=== PATIENT | female | born 1980 | race Caucasian/White ===

== ENCOUNTER 2016-08-05 13:44 | Inpatient (IN) | payer OTHER ==
--- NOTE | ~2016-08-05 | HP ---
Unit #: [id number] #: [id number] Patient: JULISSA MONAE [id number] [place] [address] [id number] MR#: [id number] NAME: JULISSA MONAE ROOM: P178 Age: 36 Sex: F Admission Date: 08/05/2016 : 1980 Attending Physician: Carlton Patel M.D. Admitting Physician: Carlton Patel M.D. Primary Care Physician: Primary Care Physician No HISTORY AND PHYSICAL HISTORY OF PRESENT ILLNESS Julissa is a 36-year-old female admitted on 08/05/2016, for detox from alcohol. PAST MEDICAL HISTORY She has a past medical history of obesity, narcolepsy, PCOS, liver disease and history of pancreatitis. PAST SURGICAL HISTORY Tonsillectomy, abdomen laparoscopy, cholecystectomy, Cesareans section x1, appendectomy and bilateral tubal ligation. SOCIAL HISTORY Smokes half pack of cigarettes daily, drinks a fifth of alcohol daily. No illegal drug use. She is currently single and living with her boyfriend. FAMILY HISTORY Noncontributory. REVIEW OF SYSTEMS CONSTITUTIONAL: No fever or chills. HEENT: Denies any sore throat, ear pain or runny nose. CARDIOVASCULAR: Denies chest pain, irregular heart rhythm or palpitations. CHEST: Denies shortness of breath or cough. No hemoptysis. GASTROINTESTINAL: Denies nausea, vomiting, diarrhea or chronic constipation. ENDOCRINE: Denies history of increased thirst or urination. No recent significant weight loss or gain. GENITOURINARY: Denies dysuria, frequency, or hematuria. SKIN: Denies any rashes. HEMATOLOGIC: Denies history of increased bleeding or bruising. MUSCULOSKELETAL: Denies any hot, swollen joints. No generalized muscle pain. NEUROLOGIC: Denies problems with vision or speech. No frequent, severe headaches. No numbness, tingling or weakness in any extremities. Denies loss of bladder or bowel control. CURRENT MEDICATIONS 1. Topamax 2. Ibuprofen ALLERGIES Morphine Unit #: [id number] #: [id number] Patient: JULISSA MONAE PHYSICAL EXAMINATION GENERAL: Alert and oriented in no acute distress. VITAL SIGNS: Blood pressure 122/80, heart rate 90. HEIGHT: 5 feet 5 inches. WEIGHT: 215 pounds. SKIN: Bruising right eye and right nasal bridge. Medical consult placed. HEENT: Normocephalic. TMs not viewed. Oral and nasal passages clear. Conjunctivae clear. PERRLA. EOMs intact. NECK: Supple without lymphadenopathy or thyromegaly. HEART: Regular rate and rhythm without murmur. LUNGS: Clear. ABDOMEN: Soft, nontender, without masses or hepatosplenomegaly. : Not done. EXTREMITIES: No evidence of cyanosis, clubbing or edema. Moves all without focal deficit. NEUROLOGICAL: Grossly within normal limits. Cranial Nerves: II: Visual chacon are intact. III, IV AND : Extraocular movements are intact. Pupils are equal, round and reactive to light. V: Facial sensation is grossly normal. VII: Facial movements and expression are normal. VIII: Auditory acuity grossly intact. IX, X: Uvula is midline. Phonation is normal. XI: Patient shrugs shoulders and turns head normally. XII: Tongue protrudes in the midline. Sensory and Motor Function: Sensory and motor sensation is grossly normal. Motor: moves all extremities well. Coordination: Gait is normal. Deep Tendon Reflexes: Intact. MEDICAL ASSESSMENT AND PLAN 1. Psychiatric admission 2. Obesity 3. Narcolepsy 4. PCOS 5. Liver disease 6. History of pancreatitis RECOMMENDATIONS 1. Psychiatric, per psychiatrist. 2. Medical, no contraindications to participating in facility's activities. MEDICAL PROGNOSIS Good. MEDICAL CONDITION Stable. Dictated by... Khushbu Kline A.P.R.N. [facility]/harry Unit #: [id number] #: [id number] Patient: JULISSA MONAE TD: 08/06/2016 15:55 JOB #: [id number] HISTORY AND PHYSICAL Page 1 of 1 X KHUSHBU MARQUES APRN X HISTORY AND PHYSICAL
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
--- NOTE | ~2016-08-05 | DS ---
Unit #: [id number] #: [id number] Patient: JULISSA MONAE [id number] [place] [address] [id number] I MR#: [id number] NAME: JULISSA MONAE ROOM: P178 Age: 36 Sex: F Admission Date: 08/05/2016 : 1980 Discharge Date: 08/08/2016 Attending Physician: Carlton Patel M.D. Primary Care Physician: Primary Care Physician No DISCHARGE SUMMARY REASON FOR ADMISSION Julissa is a 36-year-old woman with a history of alcohol dependence, who presented to this facility, reporting a recent relapse and inability to tolerate detox in the outpatient setting. She was readmitted for detox. DIAGNOSTIC STUDIES LABORATORY RESULTS: Please see hospital chart. HOSPITAL COURSE Julissa was admitted and placed on the alcohol detox protocol. Topamax was continued with Motrin p.r.n. for pain, but Adderall was discontinued. She had an uneventful period of detox with no seizures or confusion. On the date of discharge, she went to the nurse's station stating that she needed to be discharged against medical advice because her son was in the hospital having seizures. She was seen by senior staff who agreed that she was able to give a reliable contract for safety and had remained free of suicidal ideation throughout her hospitalization. She was granted her request for discharge against medical advice. DISCHARGE DIAGNOSES AXIS I: Alcohol dependence with withdrawal, uncomplicated; alcohol- induced mood disorder. AXIS II: No diagnosis. AXIS III: History of seizures, history of polycystic ovary syndrome. AXIS IV: AXIS V: DISCHARGE INSTRUCTIONS Follow up with chemical dependence programming through [facility] and primary care physician. DISCHARGE MEDICATIONS None. CONDITION AT DISCHARGE Fair. PROGNOSIS Fair. DIET AND ACTIVITY Per primary care doctor. Unit #: [id number] #: [id number] Patient: JULISSA MONAE Dictated by... Carlton Patel M.D. [facility]/luisl TD: 09/26/2016 15:33 JOB #: [id number] DISCHARGE SUMMARY Page 1 of 1 X Carlton Patel MD X DISCHARGE SUMMARY
--- NOTE | ~2016-08-05 | PA ---
Unit #: [id number] #: [id number] Patient: JULISSA MONAE [id number] [place] [address] [id number] I MR#: [id number] NAME: JULISSA MONAE ROOM: P178 Age: 36 Sex: F Admission Date: 08/05/2016 : 1980 Date of Assessment: 08/06/2016 Attending Physician: Carlton Patel M.D. Admitting Physician: Carlton Patel M.D. Primary Care Physician: Primary Care Physician No PSYCHIATRIC ASSESSMENT DATE OF SERVICE 08/06/2016. INFORMANTS The patient reliable; OLOP, reliable. CHIEF COMPLAINT Relapse and suicidal ideation. HISTORY OF PRESENT ILLNESS Ms. Monae is a 35-year-old woman with a long history of alcohol dependence, who has relapsed onto alcohol use. She reported vague suicidal ideation and had active withdrawal symptoms, so she was admitted for stabilization. PAST PSYCHIATRIC HISTORY Previous admissions to this facility under similar circumstances. FAMILY PSYCHIATRIC HISTORY Both of her grandparents and her brother abuse alcohol. SOCIAL HISTORY The patient denied a history of childhood abuse or neglect. She is erratically housed and employed. She has moderate to mild psychosocial support. PAST MEDICAL HISTORY Significant for ovarian cyst and PCOS. MEDICATIONS Metformin. ALLERGIES No known medication allergies. SUBSTANCE USE HISTORY The patient has extensive history of alcoholism as previously documented. MENTAL STATUS EXAMINATION Julissa presented as an obese woman who appeared her stated age. She was cooperative with the examination. Her speech was spontaneous and easily understood. Her musculoskeletal examination was calm. Her mood was mildly irritable with a congruent affect. She was alert and fully Unit #: [id number] #: [id number] Patient: JULISSA MONAE oriented. Her memory and concentration were fair. Her thought processes were goal directed with no active psychosis. She denied suicidal ideation, intent, or plan. Insight and judgment, fair. Fund of knowledge and abstraction, fair. ASSETS AND LIABILITIES Assets; the patient knows local resources and presents voluntarily for treatment. Liabilities; include ongoing alcohol dependence. ADMITTING DIAGNOSES AXIS I: Alcohol dependence with withdrawal, uncomplicated, F10.230. AXIS II: No diagnosis. AXIS III: Polycystic ovary syndrome. AXIS IV: AXIS V: PSYCHIATRIC PLAN The patient was admitted and placed on the alcohol detox protocol. Joseeverettx will be continued in the outpatient setting, but Adderall will be discontinued. She will enroll in dual diagnosis groups and activities, and physical examination and laboratory studies will be ordered and reviewed. Treatment goalsare resolution of intoxication, improvement in insight, and improvement in coping skills. DISCHARGE PLANNING Follow up with primary care physician and on license of [facility] mental health. ESTIMATED LENGTH OF STAY 5 days. Dictated by... Carlton Patel M.D. [facility]LEXAN[facility]/kathrine TD: 09/26/2016 22:41 JOB #: [id number] PSYCHIATRIC ASSESSMENT Page 1 of 1 X Carlton Patel MD X PSYCHIATRIC ASSESSMENT
--- NOTE | ~2016-08-05 | CO ---
Unit #: [id number] #: [id number] Patient: JULISSA MONAE [id number] [place] [address] [id number] I MR#: [id number] NAME: JULISSA MONAE ROOM: P178 Age: 36 Sex: F Admission Date: 08/05/2016 : 1980 Attending Physician: Carlton Patel M.D. Consultation Date: 08/07/2016 CONSULTATION REPORT ADRIÁN Ragland is a 36-year-old who originally admitted to detox alcohol. She has a long history of alcohol abuse. On admission, her platelet count was 35. Nursing staff was concerned because 3 days before in the local emergency room, it was 60. The patient has no signs of active bleeding. She has complained of no hematemesis, hematochezia, or melena. She has had no complaints of dizziness, weakness, or lightheadedness. Vital signs have been stable. ASSESSMENT Thrombocytopenia in a 36 year old, long history of alcohol abuse. The reason for the drop from 60 to 35 over 3 days, is most likely hydration. PLAN The patient knows to follow up with primary care physician and seriously consider stopping her alcohol intake. Dictated by... Deb Bradley P.A.-C. for [facility]/kathrine TD: 08/08/2016 18:53 JOB #: [id number] CONSULTATION REPORT Page 1 of 1 X Deb Bradley CONSULTATION REPORT
[~2016-08-05 13:44] MED LIST: BACLOFEN20 MG PO; PHENERGAN25 M1 PO; PROVIGIL100 MG PO; TOPAMAX200 MG PO; TOPAMAX50 MG PO
[2016-08-07 12:38] LABS: BASOPHIL% 0.4 % (0-2.5); EOSINOPHIL# 0.1 X10e3 (0-0.7); EOSINOPHIL% 3.7 % (0.0-7.0); HEMATOCRIT 37.9 % (35.0-45.0); HEMOGLOBIN 12.1 gm/dL (12.0-16.0); LYMPHOCYTE# 1.3 X10e3 (1.0-3.5); LYMPHOCYTE% 41.3 % (17.0-45.0); MEAN CORPUSCULAR HEMOGLOBIN 29.6 PG (28-34); MEAN CORPUSCULAR HGB CONC 31.8 g/dL (30-36); MEAN PLATELET VOLUME 9.7 FL (6.5-11.5); MONOCYTE# 0.3 X10e3 (0-1.0); MONOCYTE% 10.2 % (3.0-12.0); NEUTROPHIL# 1.4 X10e3 (1.5-7.1); NEUTROPHIL% 44.4 % (40-75); RED BLOOD COUNT 4.08 X10e (3.90-5.30); RED CELL DISTRIBUTION WIDTH 14.7 % (11.0-15.5); WHITE BLOOD COUNT 3.2 X10e3 (4.0-10.5)
[2016-08-07 12:51] LABS: ALBUMIN SERUM 3.7 g/dL (3.5-5.0); BUN/CREATININE RATIO 15.71; CALCIUM SERUM 9.4 mg/dL (8.4-10.2); CREATININE SERUM 0.7 mg/dL (0.6-1.4); GLOM FILT RATE Estimated 111.5 mL/min (>60); POTASSIUM 3.5 mmol/L (3.5-5.1); PROTEIN TOTAL SERUM 6.3 g/dL (6.0-8.3)
[2016-08-07 13:01] LABS: DIFF IND YES; PLATELET COUNT 35 X10e3 (140-420)
[2016-08-07 13:04] LABS: PLATELET ESTIMATE DECREASED (NORMAL)
== END 2016-08-08 09:34 | DRG 897 ==
LOC: P1E 13:44
PROVIDERS: Psychiatry & Neurology Psychiatry
PROC: HZ2ZZZZ Detoxification Services for Substance Abuse Treatment (ICD-10-PCS; principal; 2016-08-05)
DX: F10.239 Alcohol dependence with withdrawal, unspecified (principal); R45.851 Suicidal ideations; D69.6 Thrombocytopenia, unspecified; F10.24 Alcohol dependence with alcohol-induced mood disorder; G47.419 Narcolepsy without cataplexy; F17.210 Nicotine dependence, cigarettes, uncomplicated; S09.93XD Unspecified injury of face, subsequent encounter; Y04.0XXD Assault by unarmed brawl or fight, subsequent encounter; E28.2 Polycystic ovarian syndrome; E66.9 Obesity, unspecified; Z88.5 Allergy status to narcotic agent; K76.9 Liver disease, unspecified
CPT/HCPCS: 80053; 84703; 85025; 86592

== ENCOUNTER 2016-10-27 19:18 | Inpatient (IN) | payer OTHER ==
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
--- NOTE | ~2016-10-27 | PN ---
Unit #: [id number] #: [id number] Patient: JULISSA MONAE [id number] [place] [address] [id number] I MR#: [id number] NAME: JULISSA MONAE ROOM: P214 Age: 36 Sex: F Admission Date: 10/27/2016 : 1980 Attending Physician: Carlton Patel M.D. Admitting Physician: Carlton Patel M.D. Primary Care Physician: Generic Doctor Not In System [facility] NOTES DATE 10/29/2016 This is Paris Hurley APRN, covering for Dr. Carlton Patel at [facility]. DISCUSSION She was see and assessed on 10/29/2016. Upon today's assessment she was found sitting in the day room. She states that she is "better today and her physical symptoms of withdrawal are more tolerable. At this time. She has complaints of stomach cramps, headaches and diaphoresis. She does report that her nausea and vomiting has improved as opposed to yesterday and states that she has been suffering from some elevated levels of anxiety and restlessness at this time. We will continue to monitor her via the alcohol detox protocol, as well as q. 15 minute checks for safety. Dictated by... Paris Hurley APRN TW/josé TD: 11/01/2016 08:22 JOB #: [id number] [facility] NOTES Page 1 of 1 X PARIS HURLEY PROGRESS NOTE
--- NOTE | ~2016-10-27 | DS ---
Unit #: [id number] #: [id number] Patient: JULISSA MONAE [id number] [place] [address] [id number] I MR#: [id number] NAME: JULISSA MONAE ROOM: P214 Age: 36 Sex: F Admission Date: 10/27/2016 : 1980 Discharge Date: 11/02/2016 Attending Physician: Carlton Patel M.D. Primary Care Physician: Generic Doctor Not In System DISCHARGE SUMMARY REASON FOR ADMISSION Julissa is a 36-year-old woman with a long history of alcohol dependence, who recently relapsed and had suicidal ideation with active withdrawal symptoms. She was admitted for stabilization. DIAGNOSTIC STUDIES LABORATORY RESULTS: Please see hospital chart. HOSPITAL COURSE The patient was admitted and placed on the alcohol detox protocol. Medications except for Adderall were continued, Adderall not being appropriate in this situation. She tolerated detox well with no significant adverse side effects. No delirium, confusion, or disorientation. She continued on her medications without other problems. On the date of discharge, she continued to show improvement with no suicidal ideation, intent, plan or issues with withdrawal. She was able to follow up in the CD-IOP program. DISCHARGE DIAGNOSES AXIS I: Alcohol dependence with withdrawal, uncomplicated; history of bipolar disorder; history of attention deficit hyperactivity disorder. AXIS II: No diagnosis. AXIS III: Polycystic ovarian syndrome. AXIS IV: AXIS V: DISCHARGE INSTRUCTIONS Follow up with CD-IOP at this facility and primary care physician. DISCHARGE MEDICATIONS Trazodone 100 mg at bedtime for insomnia. The patient was also to address the Vivitrol injection 380 mg once a month with our long-acting injectable clinic once she has been sober for more than a week. She can access this program through the intensive outpatient program. Home medications continued unchanged were BuSpar 10 mg b.i.d. for anxiety, Topamax 50 mg b.i.d. and 200 mg at bedtime for mood stability, Keppra 500 mg b.i.d. for seizures, norethindrone 5 mg daily for hormone replacement, Klor-Con 20 mEq daily for potassium replacement. Adderall was discontinued during this admission. CONDITION AT DISCHARGE Unit #: [id number] #: [id number] Patient: JULISSA MONAE Improved. PROGNOSIS Fair to good. DIET AND ACTIVITY Per primary care doctor. Dictated by... [facility]/kathrine TD: 11/11/2016 03:10 JOB #: [id number] DISCHARGE SUMMARY Page 1 of 1 X Carlton Patel MD X DISCHARGE SUMMARY
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
== END 2016-11-02 14:35 | disposition home or self-care (01) | DRG 897 ==
LOC: P2S 20:46
PROC: HZ2ZZZZ Detoxification Services for Substance Abuse Treatment (ICD-10-PCS; principal; 2016-10-27)
DX: F10.230 Alcohol dependence with withdrawal, uncomplicated (principal); E28.2 Polycystic ovarian syndrome; Z81.1 Family history of alcohol abuse and dependence; Z88.5 Allergy status to narcotic agent; F17.200 Nicotine dependence, unspecified, uncomplicated

== ENCOUNTER 2016-11-14 02:00 | Inpatient (IN) | payer OTHER ==
[~2016-11-14] VITALS: Ht 157.5 cm; Wt 97.5 kg
--- NOTE | ~2016-11-14 | HP ---
Unit #: [id number] #: [id number] Patient: JULISSA MONAE [id number] [place] [address] [id number] I MR#: [id number] NAME: JULISSA MONAE ROOM: P179 Age: 36 Sex: F Admission Date: 11/15/2016 : 1980 Attending Physician: Carlton Patel M.D. Admitting Physician: Carlton Patel M.D. Primary Care Physician: Primary Care Physician No HISTORY AND PHYSICAL Julissa is a 36-year-old female admitted to [facility] on 11/15/2016 for detox from alcohol. She has multiple previous admissions for the same. She was recently admitted on 10/27/2016. I reviewed the history and physical on that admission and there are no changes. Dictated by... Raghaevndra Santizo/leonarda TD: 11/15/2016 22:08 JOB #: [id number] HISTORY AND PHYSICAL Page 1 of 1 X NICHOLAS MARQUES APRN HISTORY AND PHYSICAL
--- NOTE | ~2016-11-14 | PA ---
Unit #: [id number] #: [id number] Patient: JULISSA MONAE [id number] [place] [address] [id number] MR#: [id number] NAME: JULISSA MONAE ROOM: P179 Age: 36 Sex: F Admission Date: 11/15/2016 : 1980 Date of Assessment: Attending Physician: Carlton Patel M.D. Admitting Physician: Carlton Patel M.D. Primary Care Physician: Primary Care Physician No PSYCHIATRIC ASSESSMENT DATE OF ASSESSMENT 11/16/2016. INFORMANTS The patient, reliable; OLOP, reliable. CHIEF COMPLAINT Alcohol dependence. HISTORY OF PRESENT ILLNESS The patient is a 35-year-old woman, recently discharged from this facility, who apparently relapsed soon after admission. She had no active suicidal ideation, intent, or plan, but was highly intoxicated at the time of admission, and was admitted for detox. PAST PSYCHIATRIC HISTORY Multiple admissions to this facility at this time. FAMILY PSYCHIATRIC HISTORY Both her parents and brother abused alcohol. SOCIAL HISTORY The patient denies a history of childhood abuse or neglect. She is erratically in house and unemployed, xhlj-zq-[id number] psychosocial support, which changes with her ongoing drug use. PAST MEDICAL HISTORY Polycystic ovarian syndrome and history of ovarian cyst. MEDICATIONS Please see MAR. ALLERGIES No known medication allergies. SUBSTANCE HISTORY The patient has extensive history of alcoholism. MENTAL STATUS EXAMINATION The patient is an obese woman appearing her stated age. She was quiet and sleepy during the examination. Speech was easily understood. Mood was mildly dysphoric with a congruent affect. She was alert and fully oriented. Her memory and concentration were fair. Thought processes were Unit #: [id number] #: [id number] Patient: JULISSA MONAE logical with no psychosis, confusion, or disorientation. She denied suicidal ideation, intent, or plan. Insight and judgment, fair. Fund of knowledge and abstraction, fair. ASSETS AND LIABILITIES The patient presents voluntarily and is familiar with local resources. She is seeking long-term care, and liabilities include difficulty maintaining sobriety and lack of outpatient support. ADMITTING DIAGNOSES AXIS I: Opiate dependence with withdrawal, uncomplicated. AXIS II: No diagnosis. AXIS III: Polycystic ovarian syndrome. AXIS IV: AXIS V: PSYCHIATRIC PLAN The patient was admitted and placed on the alcohol detox protocol. She will enroll in dual diagnosis groups and activities, and we will work toward placement in a long-term care facility. ESTIMATED LENGTH OF STAY 5 days. Dictated by... Carlton Patel M.D. ALEXANDRA/kathrine TD: 11/19/2016 11:35 JOB #: [id number] PSYCHIATRIC ASSESSMENT Page 1 of 1 X Carlton Patel MD X PSYCHIATRIC ASSESSMENT
--- NOTE | ~2016-11-14 | PN ---
Unit #: [id number] #: [id number] Patient: JULISSA MONAE [id number] [facility] [address] [place] [address] [id number] MR#: [id number] NAME: JULISSA MONAE ROOM: P179 Age: 36 Sex: F Admission Date: 11/15/2016 : 1980 Attending Physician: Carlton Patel M.D. Admitting Physician: Va Barbosa PROGRESS NOTES DATE OF SERVICE: 11/19/2016 DISCUSSION Julissa is doing a little bit better today. She still complains of mild detox symptomatology, but her CIWA scores are very low. She has obtain placement tomorrow at a long-term care facility and is looking forward to this as long-term placement. ASSESSMENT Alcohol dependence. PLAN Continue current treatment plan. Anticipating discharge tomorrow to a long-term care facility. Dictated by... Va BarbosaH/kathrine TD: 11/19/2016 11:45 JOB #: [id number] [facility] BRIGHT NOTES Page 1 of 1 X Carlton Patel MD PROGRESS NOTE
--- NOTE | ~2016-11-14 | DS ---
Unit #: [id number] #: [id number] Patient: JULISSA MONAE [id number] [place] [address] [id number] I MR#: [id number] NAME: JULISSA MONAE ROOM: P179 Age: 36 Sex: F Admission Date: 11/15/2016 : 1980 Discharge Date: 11/20/2016 Attending Physician: Carlton Patel M.D. Primary Care Physician: Primary Care Physician No DISCHARGE SUMMARY REASON FOR ADMISSION Julissa is a 36-year-old woman with a history of alcohol dependence, who came back to the hospital having had immediate relapse. She had no suicidal ideation, intent, or plan, but was highly intoxicated and was readmitted for stabilization. DIAGNOSTIC STUDIES LABORATORY RESULTS: Please see hospital chart. HOSPITAL COURSE The patient was admitted and placed on the alcohol detox protocol. She enrolled in dual diagnosis groups and activities. She was generally not participated in group, spending much of her time in bed and now participating has requested. She did work with the business planner on a placement at [facility] in [place], [place]. DISCHARGE DIAGNOSES AXIS I: Alcohol dependence with withdrawal, uncomplicated, F11.230. AXIS II: No diagnosis. AXIS III: History of polycystic ovarian disease. AXIS IV: AXIS V: DISCHARGE INSTRUCTIONS Follow up with psychiatric and chemical dependency provider of your choice. DISCHARGE MEDICATIONS Topamax 50 mg b.i.d. and 200 mg at bedtime for mood stability, BuSpar 10 mg b.i.d. for anxiety, Keppra 500 mg b.i.d. for seizures, trazodone 100 mg at bedtime as needed for insomnia, norethindrone acetate 5 mg daily for hormone regulation. CONDITION AT DISCHARGE Fair. PROGNOSIS Fair. DIET AND ACTIVITY Ad efra. Unit #: [id number] #: [id number] Patient: JULISSA MONAE Dictated by... Carlton Patel M.D. [facility]/luisl TD: 11/20/2016 15:41 JOB #: [id number] DISCHARGE SUMMARY Page 1 of 1 X Carlton Patel MD DISCHARGE SUMMARY
[2016-11-14] MEDS ORDERED: NO MEDICATIONS (17:16)
[2016-11-15 10:19] LABS: BASOPHIL% 0.6 % (0-2.5); EOSINOPHIL# 0.1 X10e3 (0-0.7); HEMATOCRIT 37.5 % (35.0-45.0); HEMOGLOBIN 12.3 gm/dL (12.0-16.0); LYMPHOCYTE# 1.7 X10e3 (1.0-3.5); LYMPHOCYTE% 31.2 % (17.0-45.0); MEAN CELL VOLUME 96.7 FL (83-96); MEAN CORPUSCULAR HEMOGLOBIN 31.7 PG (28-34); MEAN CORPUSCULAR HGB CONC 32.8 g/dL (30-36); MEAN PLATELET VOLUME 8.6 FL (6.5-11.5); MONOCYTE# 0.3 X10e3 (0-1.0); MONOCYTE% 4.7 % (3.0-12.0); NEUTROPHIL# 3.5 X10e3 (1.5-7.1); NEUTROPHIL% 62.5 % (40-75); RED BLOOD COUNT 3.88 X10e (3.90-5.30); RED CELL DISTRIBUTION WIDTH 16.4 % (11.0-15.5); WHITE BLOOD COUNT 5.6 X10e3 (4.0-10.5)
[2016-11-15 10:51] LABS: ALBUMIN SERUM 3.5 g/dL (3.5-5.0); ALKALINE PHOSPHATASE 263 U/L (32-92); ALT (SGPT) 77 U/L (10-40); AST (SGOT) 86 U/L (10-42); BILIRUBIN,TOTAL 1.1 mg/dL (0.2-2.0); BLOOD UREA NITROGEN 6 mg/dL (9-23); CALCIUM SERUM 8.3 mg/dL (8.4-10.2); CARBON DIOXIDE 28 mmol/L (22-31); CHLORIDE 97 mmol/L (100-111); CREATININE SERUM 0.4 mg/dL (0.6-1.4); GLUCOSE FASTING 72 mg/dL (70-110); PROTEIN TOTAL SERUM 6.2 g/dL (6.0-8.3); SODIUM 135 mmol/L (135-145)
[2016-11-15 10:58] LABS: DEPAKENE (VALPROIC ACID) <10 ug/mL (50-125)
[2016-11-15 11:47] LABS: PLATELET COUNT 83 X10e3 (140-420)
[2016-11-15 11:48] LABS: DIFF IND YES
[2016-11-15 12:11] LABS: NUCLEATED RED BLOOD CELL 1 /100 (0)
[2016-11-15 12:12] LABS: ANISOCYTOSIS SL; PLATELET ESTIMATE DECREASED (NORMAL)
[2016-11-17 09:50] LABS: URINE APPEARANCE CLEAR; URINE BILIRUBIN NEG (NEG); URINE BLOOD NEG (NEG); URINE COLOR YELLOW; URINE GLUCOSE NEG (NEG); URINE KETONE NEG (NEG); URINE LEUKOCYTE ESTERASE NEG (NEG); URINE NITRATE NEG (NEG); URINE PH 8.5 (5-8); URINE PROTEIN NEG (NEG); URINE SPECIFIC GRAVITY 1.009 (1.003-1.035)
[2016-11-17 11:09] LABS: AMPHETAMINE NEG (NEG); BARBITURATES POS (NEG); BENZODIAZEPINES POS (NEG); COCAINE NEG (NEG); MARIJUANA NEG (NEG); OPIATES NEG (NEG); TRICYCLIC ANTIDEPRESSANTS NEG (NEG); U METHADONE NEG (NEG)
== END 2016-11-20 12:50 | disposition home or self-care (01) | DRG 897 ==
LOC: P1E 11-15 00:22
PROVIDERS: Psychiatry & Neurology Psychiatry
PROC: HZ2ZZZZ Detoxification Services for Substance Abuse Treatment (ICD-10-PCS; principal; 2016-11-15)
DX: F10.230 Alcohol dependence with withdrawal, uncomplicated (principal); E28.2 Polycystic ovarian syndrome; Y90.8 Blood alcohol level of 240 mg/100 ml or more
CPT/HCPCS: 80053; 80164; 80307; 81003; 84132; 84703; 85025; 86592

== ENCOUNTER 2016-11-14 10:06 | Emergency (ER) | payer OTHER ==
[2016-11-14 12:04] LABS: BASOPHIL% 0.6 % (0-2.5); HEMATOCRIT 38.7 % (35.0-45.0); HEMOGLOBIN 12.7 gm/dL (12.0-16.0); LYMPHOCYTE# 2.2 X10e3 (1.0-3.5); LYMPHOCYTE% 57.7 % (17.0-45.0); MEAN CELL VOLUME 96.4 FL (83-96); MEAN CORPUSCULAR HEMOGLOBIN 31.7 PG (28-34); MEAN CORPUSCULAR HGB CONC 32.9 g/dL (30-36); MONOCYTE# 0.2 X10e3 (0-1.0); MONOCYTE% 6.3 % (3.0-12.0); NEUTROPHIL# 1.3 X10e3 (1.5-7.1); NEUTROPHIL% 34.4 % (40-75); PLATELET COUNT 108 X10e3 (140-420); RED BLOOD COUNT 4.02 X10e (3.90-5.30); WHITE BLOOD COUNT 3.8 X10e3 (4.0-10.5)
[2016-11-14 12:05] LABS: DIFF IND YES
[2016-11-14 12:21] LABS: BILIRUBIN, DIRECT 0.2 mg/dL (0.0-0.2); BILIRUBIN,INDIRECT 0.3 mg/dL (0.0-0.9); BILIRUBIN,TOTAL 0.5 mg/dL (0.2-2.0); BUN/CREATININE RATIO 8.33; CALCIUM SERUM 8.1 mg/dL (8.4-10.2); CREATININE SERUM 0.6 mg/dL (0.6-1.4); GLOM FILT RATE Estimated 117.3 mL/min (>60); PROTEIN TOTAL SERUM 6.9 g/dL (6.0-8.3)
[2016-11-14 12:23] LABS: POTASSIUM 2.9 mmol/L (3.5-5.1)
[2016-11-14 12:59] LABS: PLATELET ESTIMATE DECREASED (NORMAL)
[2016-11-14 13:00] LABS: ANISOCYTOSIS MOD
[2016-11-14] MEDS ORDERED: NO MEDICATIONS (17:16)
== END 2016-11-14 21:29 | disposition home or self-care (01) ==
LOC: CED 10:06
PROVIDERS: Emergency Medicine
DX: F10.229 Alcohol dependence with intoxication, unspecified (principal); E87.6 Hypokalemia; F90.9 Attention-deficit hyperactivity disorder, unspecified type
CPT/HCPCS: 36415; 80048; 80076; 82947; 85025; 99284; G0480

== ENCOUNTER 2016-12-20 13:00 | Inpatient (IN) | payer OTHER ==
[~2016-12-20] VITALS: Ht 160 cm; Wt 97.5 kg
--- NOTE | ~2016-12-20 | HP ---
Unit #: [id number] #: [id number] Patient: JULISSA MONAE [id number] [place] [address] [id number] MR#: [id number] NAME: JULISSA MONAE ROOM: P178 Age: 36 Sex: F Admission Date: 12/20/2016 : 1980 Attending Physician: Carlton Patel M.D. Admitting Physician: Carlton Patel M.D. Primary Care Physician: Generic Doctor Not In System HISTORY AND PHYSICAL HISTORY OF PRESENT ILLNESS Julissa is a 36 year old admitted to [facility] because of her continued abuse of alcohol. She is detoxing. PAST MEDICAL HISTORY 1. Long history of alcohol abuse. 2. High blood pressure. 3. PCOS. 4. Obesity. 5. History of withdrawal seizures. PAST SURGICAL HISTORY 1. T and A. 2. Cholecystectomy. 3. Appendectomy. 4. Tubal ligation. ALLERGIES No known drug allergies. SOCIAL HISTORY He smokes less than 1/2 pack per day. Drinks at least a fifth of vodka on a daily basis. Denies illicit drug use. FAMILY HISTORY Medically noncontributory. REVIEW OF SYSTEMS CONSTITUTIONAL: No fever or chills. HEENT: Denies any sore throat, ear pain or runny nose. CARDIOVASCULAR: Denies chest pain, irregular heart rhythm or palpitations. CHEST: Denies shortness of breath or cough. No hemoptysis. GASTROINTESTINAL: Denies nausea, vomiting, diarrhea or chronic constipation. ENDOCRINE: Denies history of increased thirst or urination. No recent significant weight loss or gain. GENITOURINARY: Denies dysuria, frequency, or hematuria. SKIN: Denies any rashes. HEMATOLOGIC: Denies history of increased bleeding or bruising. MUSCULOSKELETAL: Denies any hot, swollen joints. No generalized muscle pain. NEUROLOGIC: Denies problems with vision or speech. No frequent, severe headaches. No numbness, tingling or weakness in any extremities. Denies Unit #: [id number] #: [id number] Patient: JULISSA MONAE loss of bladder or bowel control. CURRENT MEDICATIONS 1. Detox protocol. 2. Desyrel 100 mg q.h.s. 3. Topamax 200 mg q.h.s. 4. Ibuprofen 800 mg b.i.d. 5. Keppra 500 mg b.i.d. PHYSICAL EXAMINATION GENERAL: Alert, obese, in a wheelchair, weak but otherwise no apparent distress. VITAL SIGNS: Blood pressure 126/86, heart rate 88, respirations 16, temperature 98.6. WEIGHT: 215. HEIGHT: 5 feet 3 inches. SKIN: Warm and dry without rash or lesion. HEENT: Normocephalic. TMs not viewed. Oral and nasal passages clear. Conjunctivae clear. PERRLA. EOMs intact. NECK: Supple without lymphadenopathy or thyromegaly. HEART: Regular rate and rhythm without murmur. LUNGS: Clear. ABDOMEN: Soft, nontender. : Not done. EXTREMITIES: No evidence of cyanosis, clubbing or edema. Moves all without focal deficit. NEUROLOGICAL: Unable to complete extended exam. She does move all extremities without focal deficit. She is able to stand but is weak. Hand credit investigator is equal. Gait not observed. IMPRESSION Psychiatric admission. RECOMMENDATIONS PSYCHIATRIC: Per psychiatrist. MEDICAL: See no contraindication to participate in facility's activities. MEDICAL PROGNOSIS Good. MEDICAL CONDITION Stable. Dictated by... Deb Bradley P.A.-C. for [facility]/leonarda TD: 12/21/2016 19:58 JOB #: [id number] Unit #: [id number] #: [id number] Patient: JULISSA MONAE HISTORY AND PHYSICAL Page 1 of 1 X Deb Bradley HISTORY AND PHYSICAL
--- NOTE | ~2016-12-20 | PN ---
Unit #: [id number] #: [id number] Patient: JULISSA MONAE [id number] [facility] [address] [place] [address] [id number] I MR#: [id number] NAME: JULISSA MONAE ROOM: P178 Age: 36 Sex: F Admission Date: 12/20/2016 : 1980 Attending Physician: Carlton Patel M.D. Admitting Physician: Carlton Patel M.D. Primary Care Physician: Luis Doctor Not In System [facility] PROGRESS NOTES DATE 12/26/2016 DISCUSSION Julissa is up and attending some groups and activities today. She still complains of some stomach upset and "shakiness" but her Ativan protocol has stopped at this point and I am not inclined to restart it. She is depending on a social security benefits interviewer to do much of her discharge planning and I encouraged her to be more active in this area. Her mood continues to be somewhat irritable but not suicidal. ASSESSMENT Alcohol dependence. PLAN Continue current treatment plan, anticipating discharge soon. Dictated by... Carlton Patel M.D. [facility]/leonarda TD: 12/29/2016 22:28 JOB #: [id number] [facility] PROGRESS NOTES Page 1 of 1 X Carlton Patel MD PROGRESS NOTE
--- NOTE | ~2016-12-20 | PN ---
Unit #: [id number] #: [id number] Patient: JULISSA MONAE [id number] [facility] [address] [place] [address] [id number] I MR#: [id number] NAME: JULISSA MONAE ROOM: 78 Age: 36 Sex: F Admission Date: 12/20/2016 : 1980 Attending Physician: Carlton Patel M.D. Admitting Physician: Carlton Patel M.D. Primary Care Physician: [facility] Doctor Not In System [facility] PROGRESS NOTES DATE 12/25/2016 DISCUSSION Julissa has decreased detox symptoms today, she continues to report some depression, irritability, and has not been participating in groups or making significant steps towards her long-term placement. She is alert and fully oriented with no psychosis. ASSESSMENT Alcohol dependence, mood disorder, NOS. PLAN Continue current treatment plan and anticipate discharge later in the week. Dictated by... Va Barbosa/dennis TD: 12/29/2016 06:08 JOB #: [id number] [facility] PROGRESS NOTES Page 1 of 1 X Carlton Patel MD X PROGRESS NOTE
--- NOTE | ~2016-12-20 | PN ---
Unit #: [id number] #: [id number] Patient: JULISSA MONAE [id number] [facility] [address] [place] [address] [id number] I MR#: [id number] NAME: JULISSA MONAE ROOM: P178 Age: 36 Sex: F Admission Date: 12/20/2016 : 1980 Attending Physician: Carlton Patel M.D. Admitting Physician: Carlton Patel M.D. Primary Care Physician: [facility] Doctor Not In System [facility] PROGRESS NOTES DATE 12/22/2016 DISCUSSION Julissa continues to have active withdrawal symptoms today. She stayed in bed for much of the day and minimally participates in psychotherapy groups and activities. Her mood is irritable with a congruent affect. She is alert and fully oriented with no active psychosis. There is no episodes of confusion, disorientation or delirium. ASSESSMENT 1. Bipolar depressed. 2. Alcohol dependence. PLAN Continue current treatment plan. Dictated by... Va Barbosa/aaron TD: 12/29/2016 02:49 JOB #: [id number] [facility] PROGRESS NOTES Page 1 of 1 X Carlton Patel MD PROGRESS NOTE
--- NOTE | ~2016-12-20 | DS ---
Unit #: [id number] #: [id number] Patient: JULISSA MONAE [id number] [facility] [address] [place] [address] [id number] I MR#: [id number] NAME: JULISSA MONAE ROOM: P178 Age: 36 Sex: F Admission Date: 12/20/2016 : 1980 Discharge Date: 12/27/2016 Attending Physician: Carlton Patel M.D. Primary Care Physician: Generic Doctor Not In System DISCHARGE SUMMARY REASON FOR ADMISSION Julissa is a 36-year-old woman with a long history of alcohol dependence and bipolar depression. She had been drinking again and had suffered a seizure just prior to admission when she was admitted to . After she was medically stabilized at that facility, [facility] DIAGNOSTIC STUDIES LABORATORY RESULTS: Please see hospital chart. HOSPITAL COURSE The patient was admitted and placed on suicide precautions and the alcohol detox protocol. Her home medications were restarted with the change to Seroquel at bedtime for insomnia. She was generally withdrawn and minimally engaged in group activities during her hospital stay, and was highly dependent on her high school social studies tutor to attempt to determine future placement. When her detox resolved, she continued to avoid participation in the unit groups and activities. On the date of discharge, she had obtained some possible placements, but nothing definite. The patient continued to have limited insight and appears to be only marginally committed to her long-term recovery. DISCHARGE DIAGNOSES AXIS I: Bipolar depressed and alcohol dependence with withdrawal. AXIS II: No diagnosis. AXIS III: History of polycystic ovarian disease and history of withdrawal seizures. AXIS IV: AXIS V: DISCHARGE INSTRUCTIONS Follow up with community mental health and chemical dependency programing of the patient's choice. DISCHARGE MEDICATIONS Seroquel 100 mg at bedtime for insomnia and BuSpar 15 mg b.i.d. for anxiety. Primary care medications were Topamax 50 mg b.i.d. and 200 mg at bedtime for mood stability, Keppra 500 mg b.i.d. for seizures, Proventil inhaler 2 puffs every 4 hours as needed for shortness of air, and norethindrone 5 mg daily for hormone regulation. Unit #: [id number] #: [id number] Patient: JULISSA MONAE CONDITION AT DISCHARGE Fair. PROGNOSIS Fair to good. DIET AND ACTIVITY Ad efra. Dictated by... Va Barbosa/kathrine TD: 12/27/2016 18:39 JOB #: [id number] DISCHARGE SUMMARY Page 1 of 1 X Carlton Patel MD X DISCHARGE SUMMARY
--- NOTE | ~2016-12-20 | PA ---
Unit #: [id number] #: [id number] Patient: JULISSA MONAE [id number] [facility] [address] [place] [address] [id number] I MR#: [id number] NAME: JULISSA MONAE ROOM: P178 Age: 36 Sex: F Admission Date: 12/20/2016 : 1980 Date of Assessment: 12/21/2016 Attending Physician: Carlton Patel M.D. Admitting Physician: Carlton Patel M.D. Primary Care Physician: Generic Doctor Not In System PSYCHIATRIC ASSESSMENT DATE OF SERVICE 12/21/2016. INFORMANTS The patient, reliable and [facility]. CHIEF COMPLAINT Alcohol dependence and SI. HISTORY OF PRESENT ILLNESS Julissa is a 36-year-old woman, who was discharged from this hospital about 4 weeks ago and she recently relapsed on alcohol, drinking up to a fifth of vodka or rum daily. She had a history of seizures and was admitted to [facility] briefly for history of extreme seizures and detox. [facility] PAST PSYCHIATRIC HISTORY Several previous admissions to this facility. Please see previous assessments for details. FAMILY PSYCHIATRIC HISTORY Reviewed and no changes. SOCIAL HISTORY The patient denies a history of childhood abuse or neglect. She is erratically housed and is unemployed with minimal psychosocial support at this point. PAST MEDICAL HISTORY Polycystic ovarian syndrome and history of ovarian cyst. Also, history of withdrawal seizures. MEDICATIONS Please see MAR. ALLERGIES No known medication allergies. SUBSTANCE ABUSE HISTORY As noted, the patient has an extensive history of alcoholism. MENTAL STATUS EXAMINATION Julissa presented as an obese woman, appearing older than her stated age. Unit #: [id number] #: [id number] Patient: JULISSA MONAE She was sleepy during the examination with sparse speech. Mood was depressed with a flat affect. She was alert and fully oriented with no evidence of psychosis and ongoing suicidal ideation. She had fair fund of knowledge and abstraction. ASSETS AND LIABILITIES The patient comes in voluntarily and agrees to seek long-term care. Liabilities include frequent relapse and lack of support. ADMITTING DIAGNOSES AXIS I: Bipolar depressed and alcohol dependence. AXIS II: No diagnosis. AXIS III: Polycystic ovarian syndrome. AXIS IV: AXIS V: PSYCHIATRIC PLAN The patient was admitted on the alcohol detox protocol. Her home medications will be restarted for her new condition and she will enroll in dual diagnosis groups and activities. TREATMENT GOALS Resolution of SI, improvement in insight, resolution of intoxication, and improvement in coping skills. DISCHARGE PLANNING Follow up with chemical dependence programing and community mental health. ESTIMATED LENGTH OF STAY 5 days. Dictated by... Va Barbosa/kathrine TD: 12/27/2016 16:16 JOB #: [id number] PSYCHIATRIC ASSESSMENT Page 1 of 1 X Carlton Patel MD X PSYCHIATRIC ASSESSMENT
--- NOTE | ~2016-12-20 | PN ---
Unit #: [id number] #: [id number] Patient: JULISSA MONAE [id number] [facility] [address] [place] [address] [id number] I MR#: [id number] NAME: JULISSA MONAE ROOM: P178 Age: 36 Sex: F Admission Date: 12/20/2016 : 1980 Attending Physician: Carlton Patel M.D. Admitting Physician: Carlton Patel M.D. Primary Care Physician: Generic Doctor Not In System [facility] PROGRESS NOTES DATE OF SERVICE 12/24/2016 DISCUSSION Julissa continues to have detox symptoms today. She mainly stays in bed and attends only occasional groups and activities. Her mood is irritable with a decreased range of affect. She is alert and fully oriented with no active psychosis. ASSESSMENT Alcohol dependence, major depression. PLAN Continue current treatment plan. Dictated by... Va Barbosa/aaron TD: 12/29/2016 01:12 JOB #: [id number] [facility] PROGRESS NOTES Page 1 of 1 X Carlton Patel MD PROGRESS NOTE
[~2016-12-20 13:00] MED LIST changes: +NO MEDICATIONS
== END 2016-12-27 17:00 | DRG 897 ==
LOC: P1E 19:32
PROC: HZ2ZZZZ Detoxification Services for Substance Abuse Treatment (ICD-10-PCS; principal; 2016-12-21)
DX: F10.239 Alcohol dependence with withdrawal, unspecified (principal); F31.9 Bipolar disorder, unspecified; I10 Essential (primary) hypertension; E28.2 Polycystic ovarian syndrome; Z90.49 Acquired absence of other specified parts of digestive tract; Z98.51 Tubal ligation status; F17.210 Nicotine dependence, cigarettes, uncomplicated
CPT/HCPCS: 86592

== ENCOUNTER 2017-01-08 15:58 | Inpatient (IN) | payer OTHER ==
[~2017-01-08] VITALS: Ht 162.6 cm; Wt 104.3 kg
--- NOTE | ~2017-01-08 | HP ---
Unit #: [id number] #: [id number] Patient: JULISSA MONAE [id number] [place] [address] [id number] I MR#: [id number] NAME: JULISSA MONAE ROOM: P173 Age: 36 Sex: F Admission Date: 01/08/2017 : 1980 Attending Physician: Carlton Patel M.D. Admitting Physician: Carlton Patel M.D. Primary Care Physician: Generic Doctor Not In System HISTORY AND PHYSICAL Julissa is a 36 year old admitted to [facility] because of her continued abuse of alcohol. She is detoxing. She was recently discharged from this facility after treatment for the same. Patient was seen and H and P dated 12/21/16 was reviewed. This is current. No changes. Please see H and P dated 12/21/16. Dictated by... Deb Bradley PDaijaAAlonso. for [facility]/leonarda TD: 01/09/2017 20:07 JOB #: [id number] HISTORY AND PHYSICAL Page 1 of X Deb Bradley HISTORY AND PHYSICAL
--- NOTE | ~2017-01-08 | PN ---
Unit #: [id number] #: [id number] Patient: JULISSA MONAE [id number] [facility] [address] [place] [address] [id number] MR#: [id number] NAME: JULISSA MONAE ROOM: P173 Age: 36 Sex: F Admission Date: 01/08/2017 : 1980 Attending Physician: Carlton Patel M.D. Admitting Physician: Carlton Patel M.D. Primary Care Physician: Juancarlos Chung Listed [facility] PROGRESS NOTES DATE 01/10/2017 DISCUSSION Julissa is doing a little bit better now with a more active participation in groups and less detox symptoms. Her mood remains anxious with a congruent affect. She is alert and fully oriented with no psychosis. ASSESSMENT Alcohol dependence. PLAN Continue detox protocol. Dictated by... Va Barbosa/paige TD: 01/18/2017 02:58 JOB #: [id number] [facility] PROGRESS NOTES Page 1 of 1 X Carlton Patel MD PROGRESS NOTE
--- NOTE | ~2017-01-08 | PN ---
Unit #: [id number] #: [id number] Patient: JULISSA MONAE [id number] [facility] [address] [place] [address] [id number] I MR#: [id number] NAME: JULISSA MONAE ROOM: 73 Age: 36 Sex: F Admission Date: 01/08/2017 : 1980 Attending Physician: Carlton Patel M.D. Admitting Physician: Carlton Patel M.D. Primary Care Physician: Generic Doctor Not In System [facility] PROGRESS NOTES DATE 01/14/2017 DISCUSSION Julissa is up and around on the unit today, she still complains of difficulty sleeping and reports mild "sniffles" from a viral upper respiratory infection. Her mood is better with a brighter affect. She is alert and fully oriented with no evidence of psychosis and no SI. She is planning to go to [facility] facility tomorrow. ASSESSMENT Alcohol dependence, bipolar disorder. PLAN We will add Benadryl p.r.n. for her congestion and change Seroquel back to trazodone in an attempt to improve her sleep. Dictated by... Va BarbosaH/dennis TD: 01/17/2017 05:14 JOB #: [id number] [facility] PROGRESS NOTES Page 1 of 1 X Carlton Patel MD PROGRESS NOTE
--- NOTE | ~2017-01-08 | PA ---
Unit #: [id number] #: [id number] Patient: JULISSA MONAE [id number] [place] [address] [id number] I MR#: [id number] NAME: JULISSA MONAE ROOM: P173 Age: 36 Sex: F Admission Date: 01/08/2017 : 1980 Date of Assessment: Attending Physician: Carlton Patel M.D. Admitting Physician: Carlton Patel M.D. PSYCHIATRIC ASSESSMENT DATE OF SERVICE 01/09/2017. INFORMANTS The patient, partially reliable and OLOP, reliable. CHIEF COMPLAINT Relapse. HISTORY OF PRESENT ILLNESS Julissa is a 36-year-old woman, recently discharged from this facility, who apparently "could not find a ride" to her recent placement and relapsed on alcohol. She had vague suicidal ideation and was admitted after medical clearance. PAST PSYCHIATRIC HISTORY Several admissions to this facility. FAMILY PSYCHIATRIC HISTORY Reviewed with no changes. SOCIAL HISTORY The patient denied a childhood history of abuse or neglect. She is erratically housed and employed. PAST MEDICAL HISTORY Polycystic ovarian syndrome and withdrawal seizures. MEDICATIONS Please see MAR. ALLERGIES No known medication allergies. SUBSTANCE ABUSE HISTORY Extensive history of alcoholism. MENTAL STATUS EXAMINATION Julissa presented as an obese woman, appearing her stated age. She was sleepy with sparse speech. Mood was depressed with a flat affect. She was alert and fully oriented with no evidence of psychosis and vague SI. ASSETS AND LIABILITIES Unit #: [id number] #: [id number] Patient: JULISSA MONAE The patient is voluntary and plans to seek long-term care. Liabilities include frequent relapse. ADMITTING DIAGNOSES AXIS I: Alcohol dependence and bipolar depressed. AXIS II: No diagnosis. AXIS III: Polycystic ovarian syndrome. AXIS IV: AXIS V: PSYCHIATRIC PLAN The patient was admitted and placed on the alcohol detox protocol. Her home medications will be restarted. TREATMENT GOALS Resolution of intoxication, resolution of SI, improvement in insight, and improvement in coping skills. DISCHARGE PLANNING Follow up with chemical dependence programing of the patient's choice. ESTIMATED LENGTH OF STAY 5 days. Dictated by... Carlton Patel M.D. ALEXANDRA/kathrine TD: 01/14/2017 16:53 JOB #: [id number] PSYCHIATRIC ASSESSMENT Page 1 of 1 X Carlton Patel MD PSYCHIATRIC ASSESSMENT
--- NOTE | ~2017-01-08 | DS ---
Unit #: [id number] #: [id number] Patient: JULISSA MONAE [id number] [place] [address] [id number] MR#: [id number] NAME: JULISSA MONAE ROOM: P173 Age: 36 Sex: F Admission Date: 01/08/2017 : 1980 Discharge Date: 01/15/2017 Attending Physician: Carlton Patel M.D. Primary Care Physician: [facility] Doctor Not In System DISCHARGE SUMMARY REASON FOR ADMISSION Julissa is a 36-year-old woman, recently discharged from this facility, who relapsed soon after her last discharge on alcohol and claimed that she was "unable to get a ride" to her previous placement. She was unable to contract for safety and was readmitted for stabilization. DIAGNOSTIC STUDIES LABORATORY RESULTS: Please see hospital chart. HOSPITAL COURSE The patient was admitted and placed on suicide precautions as well as the alcohol detox protocol. Her previous medications were continued unchanged. She was a little more active during this hospitalization, participating appropriately in groups and activities as her detox progressed. She was able to achieve placement at [facility] in [place], [place], and was discharged in stable condition to follow up there. DISCHARGE DIAGNOSES AXIS I: Alcohol dependence with withdrawal, uncomplicated, F10.230 and history of anxiety disorder. AXIS II: No diagnosis. AXIS III: History of withdrawal seizures and history of asthma. AXIS IV: AXIS V: DISCHARGE INSTRUCTIONS Follow up with primary care physician and [facility] in [place]. DISCHARGE MEDICATIONS Trazodone 150 mg at bedtime as needed for insomnia. Primary care medicines were BuSpar 15 mg b.i.d. for anxiety, Topamax 50 mg b.i.d. and 200 mg at bedtime for anxiety, Keppra 500 mg b.i.d. for seizures, Proventil inhaler 2 puffs every 4 hours as needed for shortness of air, and norethindrone 5 mg daily for hormone regulation. CONDITION AT DISCHARGE Fair. PROGNOSIS Fair to good. Unit #: [id number] #: [id number] Patient: JULISSA MONAE DIET AND ACTIVITY Per primary care doctor. Dictated by... Carlton Patel M.D. [facility]/kathrine TD: 01/15/2017 19:18 JOB #: [id number] DISCHARGE SUMMARY Page 1 of 1 X Carlton Patel MD DISCHARGE SUMMARY
== END 2017-01-15 11:25 | DRG 897 ==
LOC: P1E 19:38
PROC: HZ2ZZZZ Detoxification Services for Substance Abuse Treatment (ICD-10-PCS; principal; 2017-01-08)
DX: F10.230 Alcohol dependence with withdrawal, uncomplicated (principal); F31.9 Bipolar disorder, unspecified; E28.2 Polycystic ovarian syndrome; F41.9 Anxiety disorder, unspecified; J45.909 Unspecified asthma, uncomplicated
CPT/HCPCS: 84703